=== PATIENT | female | born 1985 | race Caucasian/White ===

== ENCOUNTER 2017-06-01 14:30 | Emergency (ER) | payer OTHER ==
[2017-06-01 14:35] VITALS: PULSE 95; BMI 34.7
--- NOTE | 2017-06-01 15:24 | PDOC ---
History of Present Illness - General Chief Complaint: Pain Stated Complaint: 8WKS,ABD PAIN Time Seen by Provider: 06/01/17 14:46 History Source: Patient Exam Limitations: No Limitations - History of Present Illness Initial Comments: CHIEF COMPLAINT: 31 y/o approximately 7 week female with LMP of c/o abdominal pain for the past 2 hours. HISTORY OF PRESENT ILLNESS: The patient states the pain feels like cramping in her lower abdomen and she did have some pain in her low back as well. She denies f/c, n/v/d, CP, SOB, hematuria, dysuria, vaginal discharge, vaginal bleeding. Vital signs on arrival are notable for pulse of 95. REVIEW OF SYSTEMS: GENERAL/CONSTITUTIONAL: No fever/chills. No weakness. No weight change. HEAD, EYES, EARS, NOSE AND THROAT: No change in vision. No ear pain or discharge. No sore throat. CARDIOVASCULAR: No chest pain or shortness of breath. RESPIRATORY: No cough, wheezing, or hemoptysis. GASTROINTESTINAL: +abdominal cramping. No nausea, vomiting, diarrhea. GENITOURINARY: No dysuria, frequency, or change in urination. MUSCULOSKELETAL: No joint or muscle swelling or pain. No neck pain. +low back pain. SKIN: No rash or easy bruising. NEUROLOGIC: No headache, vertigo, loss of consciousness, or loss of sensation. PHYSICAL EXAM: GENERAL: The patient is awake, alert, and fully oriented, in no acute distress. She is well appearing and ambulatory. HEAD: Normal with no signs of trauma. ENT: Pupils equal, round and reactive to light, extraocular movements intact, sclera anicteric, conjunctiva clear. Neck supple. LUNGS: Clear to auscultation bilaterally. Normal excursion. No respiratory distress or use of accessory muscles. CV: RRR, S1/S2, no MRG. Cap refill < 2 sec. ABDOMEN: Soft, non-distended, tenderness with palpation of suprapubic region. Negative Ojeda's sign. No rebound, guarding or rigidity. BACK: No CVA TTP b/l VAGINAL: DEFERRED EXTREMITIES: Normal range of motion, no edema. NEUROLOGICAL: Normal speech, normal gait. CN II-XII grossly intact. PSYCH: Normal mood, normal affect. SKIN: Warm, dry, normal turgor, no rashes or lesions noted. Past History - Past Medical History Allergies/Adverse Reactions: Allergies Allergy/AdvReac Type Severity Reaction Status Date / Time No Known Allergies Allergy Verified 06/01/17 14:34 Home Medications: Ambulatory Orders Vit/Iron Fumarate/FA [ Tablet] 1 tab PO DAILY 11/09/15 Asthma: No Cancer: No Cardiac Disorders: No Diabetes: No HTN: No Seizures: No Thyroid Disease: No - Reproductive History (#): 2 Para: 1 Therapeutic (s) & number: Yes (4 months ago) - Psycho/Social/Smoking Cessation Hx Anxiety: No Suicidal Ideation: No Smoking Status: Yes Smoking History: Never smoked Have you smoked in the past 12 months: No Number of Cigarettes Smoked Daily: 2 Hx Alcohol Use: No Drug/Substance Use Hx: No Substance Use Type: None Hx Substance Use Treatment: No *Physical Exam - Vital Signs Last Vital Signs Temp Pulse Resp BP Pulse Ox 98.0 F 95 H 20 115/63 98 06/01/17 14:32 06/01/17 14:32 06/01/17 14:32 06/01/17 14:32 06/01/17 14:32 ED Treatment Course - LABORATORY CBC & Chemistry Diagram: 06/01/17 15:30 06/01/17 15:30 - RADIOLOGY Radiology Studies Ordered: Category Date Time Status TRANSVAGINAL US PREG [US] Stat Ultrasound 06/01/17 15:08 Ordered Medical Decision Making - Medical Decision Making A/P: 31 y/o afebrile female, approximately 7 weeks female c/o abd pain x 2 hours. Plan is as follows: 1. labs 2. UA/culture 3. transvaginal ultrasound Transvaginal Ultrasound IMPRESSION: Single, live intrauterine of 7 weeks, 2 days. Labs unremarkable. UA with trace leuks and 10 WBCs. Will treat with Keflex. Pt instructed to take Tylenol for pain if needed, take entire dose of keflex and drink at least 64oz of water daily. Pt instructed to call her COMPUTER VIDEO GAME DESIGNER on Saturday and return to the ER with any worsening or concerning symptoms. The patient verbalizes understanding of all instructions, has no further questions and is awaiting discharge. *DC/Admit/Observation/Transfer Diagnosis at time of Disposition: Abdominal pain affecting Urinary tract infection Qualifiers: Urinary tract infection type: acute cystitis Hematuria presence: without hematuria Qualified Code(s): N30.00 - Acute cystitis without hematuria - Discharge Dispostion Disposition: HOME Condition at time of disposition: Good - Referrals Referrals: Jos Briceno MD [Primary Care Provider] - - Patient Instructions Printed Discharge Instructions: DI for Urinary Tract Infection (UTI), DI for Abdominal Pain -- Early Additional Instructions: Discharge Instructions: -You have a Urinary tract infection; a prescription for antibiotics has been sent to your pharmacy; please take entire 7 days -You can take Tylenol for pain -Please drink 64oz of water daily -Call your COMPUTER VIDEO GAME DESIGNER on Saturday to schedule follow up appointment -Return to the ER with any worsening or concerning symptoms
[2017-06-01 15:38] LABS: URINE APPEARANCE CLEAR; URINE BILIRUBIN NEGATIVE (NEGATIVE); URINE BLOOD NEGATIVE (NEGATIVE); URINE COLOR YELLOW; URINE GLUCOSE (UA) NEGATIVE (NEGATIVE); URINE KETONE NEGATIVE (NEGATIVE); URINE NITRITE NEGATIVE (NEGATIVE); URINE PROTEIN NEGATIVE (NEGATIVE); URINE UROBILINOGEN NEGATIVE E.U./dl (0.2-1.0)
[2017-06-01 15:48] LABS: URINE LEUK ESTERASE TRACE (NEGATIVE)
[2017-06-01 15:54] LABS: ALBUMIN 3.5 g/dl (3.4-5.0); ALK PHOS 92 U/L (45-117); ANION GAP 8 (8-16); BILIRUBIN,TOTAL 0.2 mg/dL (0.2-1.0); CALCIUM 8.3 mg/dL (8.5-10.1); CO2 24 mmol/L (21-32); CREATININE 0.6 mg/dL (0.55-1.02); GLUCOSE,RANDOM 85 mg/dL (74-106); SGOT/AST 13 U/L (15-37); SGPT/ALT 17 U/L (12-78); URINE BACTERIA RARE /hpf (NONE SEEN); URINE RBC 3 /hpf (0-3); URINE WBC 10 /hpf (3-5)
[2017-06-01 15:56] LABS: BASOPHIL 0.8 % (0-2.0); EOSINOPHIL 1.3 % (0-4.5); MCH 29.6 pg (25.7-33.7); MCHC 33.3 g/dl (32.0-36.0); MEAN CELL VOLUME 88.8 fl (80-96); MEAN PLT VOLUME 7.9 fl (7.5-11.1); NEUTROPHILS 59.4 % (42.8-82.8); PLATELET COUNT 329 K/MM3 (134-434); RDW 13.1 % (11.6-15.6); WHITE BLOOD COUNT 8.8 K/mm3 (4.0-10.0)
[2017-06-01] MEDS ORDERED: CEPHALEXIN MONOHYDRATE 500 MG CAPSULE (UD) PO ONE (17:26)
[2017-06-01] MEDS ORDERED: CEPHALEXIN MONOHYDRATE 250 MG CAPSULE (FP) ONE (17:35)
[2017-06-01 18:07] VITALS: BP 131/78; TEMP 97.7
== END 2017-06-01 17:45 | disposition home or self-care (01) ==
LOC: JER 14:30
DX: O26.891 Other specified pregnancy related conditions, first trimester (principal); O23.11 Infections of bladder in pregnancy, first trimester; N30.90 Cystitis, unspecified without hematuria; Z3A.01 Less than 8 weeks gestation of pregnancy
CPT/HCPCS: 36415; 76801-TC; 80053; 81003; 81015; 84702; 85025; 86850; 86900; 86901; 87086; 99282-25

== ENCOUNTER 2017-12-07 22:27 | Inpatient (IN) | payer OTHER ==
[2017-12-08] MEDS ORDERED: LABETALOL HCL 5 MG/1 ML (100MG/20 ML VIAL) ONE (00:06)
[2017-12-08] MEDS ORDERED: BETAMET ACET/BETAMET NA PH 30 MG/5 ML VIAL ONE (00:08)
[2017-12-08 00:12] LABS: BASO % 0.4 % (0-2.0); EOS % 1.2 % (0-4.5); HEMATOCRIT 36.9 % (32.4-45.2); HEMOGLOBIN 12.4 GM/dL (10.7-15.3); LYMPH % 23.4 % (8-40); MCH 29.4 pg (25.7-33.7); MCHC 33.7 g/dl (32.0-36.0); MEAN CELL VOLUME 87.4 fl (80-96); MEAN PLT VOLUME 8.7 fl (7.5-11.1); MONO % 8.7 % (3.8-10.2); NEUT % 66.3 % (42.8-82.8); PLATELET COUNT 273 K/MM3 (134-434); RBC 4.22 M/mm3 (3.60-5.2); RDW 15.2 % (11.6-15.6); RETICULOCYTES 1.84 % (0.5-1.5); WHITE BLOOD COUNT 9.9 K/mm3 (4.0-10.0)
[2017-12-08 00:35] LABS: INR 0.88 (0.82-1.09); PROTHROMBIN TIME (PATIENT) 9.9 SEC (9.98-11.88)
[2017-12-08 00:38] LABS: ACTIVATED PTT 28.9 SECONDS (26.9-34.4)
--- NOTE | 2017-12-08 00:42 | HP ---
Past Medical History - Admission Chief Complaint: Vaginal bleeding History of Present Illness: 32yo LMP 04/12/17 EDC 01/17/18 by LMP presents wtih c/o vaginal bleeding. PNC at [facility] care significant for placenta previa (posterior). Pt had some bleeding in October. Denies any contractions, any leakage of fluid. +FM. Pt was sleeping and awoken by feeling wet. She states she had large amount of bleeding with large clots. Denies any pain. On L&D, blood pressure noted to be elevated; with range of 140s-170s/80s-90s. Pt denies epigastric pain, headache or scotomata. Did not have any issues with her blood pressure during the . Has not had h/o preeclampsia in her last pregnancies. Ob history significant for pph after second delivery with retained placenta. Placenta was noted to be very adherent during that delivery, and suspicious for partial accreta. Pt states that she was told that there was evidence of "scar tissue" on her u/s. Pt B+/RI/Hep bsAg negative/rpr nr/gc negative/chlam negative; hgb aa History Source: Patient Limitations to Obtaining History: No Limitations - Past Medical History ...: 4 ...Para: 2 ...Term: 0 ...: 0 ...Spon : 0 ...Induced : 1 ...LMP: 04/12/17 ...EDC by Dates: 01/17/18 Heme/Onc: No: Anemia, B12 Deficiency, Bleeding Disorder, Cancer, Current Chemotherapy, Current Radiation Therapy, Hemochromatosis, Hypercoaguable State, Myeloproliferative Synd, Sickle Cell Disease, Sickle Cell Trait, Thrombocytopenia, Other Infectious Disease: No: AIDS, C-Diff, Herpes Zoster, HIV, MRSA, STD's, Tuberculosis, VREF, Other Psych: No: Addictions, Anxiety, Bipolar, Depression, Panic, Psychosis, Schizophrenia, Other Musculoskeletal: No: Bursitis, Chronic low back pain, Hemiparesis, Hemiplegia, Osteoarthritis, Paraplegia, Other Rheumatology: No: Fibromyalgia, Gout, Lupus, Rheumatoid Arthritis, Sarcoidosis, Vasculitis, Other ENT: No: Allergic Rhinitis, Sinusitis, Other Endocrine: No: Waterloo's Disease, [place]ling[place]'s Disease, Diabetes Insipidus, Diabetes Mellitus, Hyperparathyroidism, Hyperthyroidism, Hypothyroidism, Osteopenia, SIADH, Other - Past Surgical History Past Surgical History: Yes: None Hx Myomectomy: No Hx Transabdominal Cerclage: No - Smoking History Smoking history: Never smoked Have you smoked in the past 12 months: No Aproximately how many cigarettes per day: 2 - Alcohol/Substance Use Hx Alcohol Use: No History of Substance Use: reports: None Home Medications - Allergies Allergies/Adverse Reactions: Allergies Allergy/AdvReac Type Severity Reaction Status Date / Time No Known Allergies Allergy Verified 10/15/17 21:01 - Home Medications Home Medications: Ambulatory Orders Vit/Iron Fumarate/FA [ Tablet] 1 tab PO DAILY 11/09/15 Cephalexin Monohydrate [Keflex -] 500 mg PO BID #14 capsule 06/01/17 Ferrous Sulfate [Feosol] 325 mg PO BID #60 tablet 10/15/17 Family Disease History - Family Disease History Family History: Unremarkable Review of Systems - Review of Systems Constitutional: reports: No Symptoms Eyes: reports: No Symptoms HENT: reports: No Symptoms Cardiovascular: reports: No Symptoms Respiratory: reports: No Symptoms Gastrointestinal: reports: No Symptoms Genitourinary: reports: Vaginal Bleeding Breasts: reports: No Symptoms Reported Musculoskeletal: reports: No Symptoms Integumentary: reports: No Symptoms Neurological: reports: No Symptoms Endocrine: reports: No Symptoms Hematology/Lymphatic: reports: No Symptoms Psychiatric: reports: No Symptoms Physical Exam - Maternity Constitutional: Yes: Well Nourished, No Distress, Calm Eyes: Yes: WNL, Conjunctiva Clear, EOM Intact HENT: Yes: WNL, Atraumatic, Normocephalic Neck: Yes: WNL, Supple, Trachea Midline Cardiovascular: Yes: WNL, Regular Rate and Rhythm Breast(s): Yes: WNL - Abdominal Exam/OB Fundal Height: 35 Number of Fetuses: Single Contractions: No Monitor Mode: External Heart Rate (range): 130 Category: I Accelerations: Uniform Decelerations: None - Vaginal Exam/OB Vaginal Bleediing: Yes Speculum Exam: Yes (cervix appears closed; blood in vault; no active bleeding noted) Amniotic Membrane Status: Intact - Physical Exam Musculoskeletal: Yes: WNL Extremities: Yes: WNL Integumentary: Yes: WNL - Labs Lab Results: CBC, BMP 12/07/17 23:55 Hemorrhage Risk Assessment - Risk Factors Medium Risk Factors: Yes: History of previous hemorrhage High Risk Factors: Yes: Placenta previa, low lying Risk Score: 3 Risk Level: High Risk Problem List - Problems (1) Placenta previa with hemorrhage in third trimester Code(s): O44.13 - COMPLETE PLACENTA PREVIA WITH HEMORRHAGE, THIRD TRIMESTER (2) Hypertension affecting in third trimester Code(s): O16.3 - UNSPECIFIED MATERNAL HYPERTENSION, THIRD TRIMESTER Assessment/Plan 32yo EDC 01/17/18 SIUP at 34.2 weeks gestation with placenta previa presents with vaginal bleeding. Pt also noted to have elevated blood pressure. Not currently actively bleeding on exam admit to labor and delivery betamethasone for flm r/o preeclampsia-labs and urine ordered labetalol for systolic >/ 160 or diastolic >/100 sono for well being type and cross x 2 units last , pt with pph and suspicion for placenta accreta; pt with posterior previa, and signs of "scar tissue" on sono per pt. Given bleeding, previa, elevated bp's will contact [facility] for possible transfer of care. High risk for pph and hysterectomy plan discussed with pt and at length. Dr. Silvestre
[2017-12-08 00:50] LABS: ANION GAP 10 (8-16); BLOOD UREA NITROGEN 15 mg/dL (7-18); CHLORIDE 105 mmol/L (98-107); CO2 24 mmol/L (21-32); CREATININE 0.7 mg/dL (0.55-1.02); GAMMA GLUTAMYL TRANSPEPTIDASE 17 U/L (5-85); GLUCOSE,RANDOM 75 mg/dL (74-106); POTASSIUM 4.3 mmol/L (3.5-5.1); SGOT/AST 12 U/L (15-37); SGPT/ALT 15 U/L (12-78); SODIUM 139 mmol/L (136-145); URIC ACID 4.5 mg/dL (2.6-7.2)
[2017-12-08 00:56] LABS: URINE APPEARANCE CLEAR; URINE BILIRUBIN NEGATIVE (NEGATIVE); URINE BLOOD 3+ (NEGATIVE); URINE COLOR LTYELLOW; URINE GLUCOSE (UA) 1+ (NEGATIVE); URINE KETONE NEGATIVE (NEGATIVE); URINE LEUK ESTERASE NEGATIVE (NEGATIVE); URINE NITRITE NEGATIVE (NEGATIVE); URINE UROBILINOGEN NEGATIVE mg/dL (0.2-1.0)
[2017-12-08 01:02] LABS: URINE PROTEIN 3+ (NEGATIVE)
[2017-12-08 01:04] LABS: EPI CELLS RARE /HPF (FEW); URINE BACTERIA RARE /hpf (NONE SEEN); URINE MUCUS RARE; YEAST FEW
[2017-12-08] MEDS ORDERED: MAGNESIUM 4GM/H20 - 4 GM/100 ML IVPB IVPB ONE ×2 (01:05→02:00)
[2017-12-08 01:07] LABS: URINE CREATININE 69.8 mg/dL (20-320)
[2017-12-08 01:08] LABS: RATIO URIN PROTEIN/URIN CREAT 4.68 MG/DL
[2017-12-08] MEDS ORDERED: OXYTOCIN 10 UNITS/ML VIAL ONE (01:56)
[2017-12-08] MEDS ORDERED: BETAMET ACET/BETAMET NA PH 30 MG/5 ML VIAL IM ONE (01:58)
[2017-12-08] MEDS ORDERED: DEXTROSE 5%-LACTATED RINGERS 1,000 ML IV SCH (02:00)
[2017-12-08] MEDS ORDERED: MAGNESIUM SULFATE 20GM/500ML - 20 GM/500 ML INFUS.BAG IVPB SCH (02:00)
--- NOTE | 2017-12-08 02:17 | PN ---
Progress Note (short form) - Note Progress Note: Pt labs reviewed: h/h 12.4/36.[address] [facility] contacted for possible transfer. Concern regarding placenta previa and previous h/o pph with questionable accreta. transfer accepted. Dr. Silvestre Problem List - Problems (1) Placenta previa with hemorrhage in third trimester Code(s): O44.13 - COMPLETE PLACENTA PREVIA WITH HEMORRHAGE, THIRD TRIMESTER (2) Hypertension affecting in third trimester Code(s): O16.3 - UNSPECIFIED MATERNAL HYPERTENSION, THIRD TRIMESTER
[2017-12-08 04:06] VITALS: PULSE 87
[2017-12-08 04:07] VITALS: BP 145/84
[2017-12-08 04:40] VITALS: TEMP 98.5; BMI 41.5
== END 2017-12-08 03:00 | disposition short-term general hospital (02) | DRG 566 ==
LOC: JDEL 22:27 → JLDR 12-08 00:22
PROVIDERS: ADMIT Obstetrics & Gynecology; ATTEND Obstetrics & Gynecology
DX: O44.03 Complete placenta previa NOS or without hemorrhage, third trimester (principal); O13.3 Gestational [pregnancy-induced] hypertension without significant proteinuria, third trimester; Z3A.34 34 weeks gestation of pregnancy
CPT/HCPCS: 36415; 76815; 76830-TC; 80048; 81003; 81015; 82570; 82977; 83010; 84156; 84450; 84460; 84550; 85025; 85044; 85610; 85730; 86593; 86850; 86900; 86901; 96372

== ENCOUNTER 2018-05-13 07:47 | Inpatient (IN) | payer OTHER ==
[2018-05-12 16:34] VITALS: BMI 40.6
[~2018-05-13 07:47] MED LIST: BUPIVACAINE HCL/PF (5 MG/ML) 30 ML VIAL IJ ONE
[2018-05-13] MEDS ORDERED: BUPIVACAINE HCL/PF 0.5% (5MG/ML) 10 ML VIAL ONE (07:58)
[2018-05-13] MEDS ORDERED: MIDAZOLAM HCL 2 MG/2 ML SINGLE DOSE VIAL ONE ×2 (09:43)
[2018-05-13] MEDS ORDERED: DEXAMETHASONE SOD PHOSPHATE/PF 10 MG/ML SDV ONE (09:45)
[2018-05-13] MEDS ORDERED: ROPIVACAINE HCL 0.5% 30ML VIAL ONE (09:45)
[2018-05-13] MEDS ORDERED: ROCURONIUM BROMIDE 50 MG/5 ML VIAL ONE (10:14)
[2018-05-13] MEDS ORDERED: fentaNYL CITRATE 250 MCG/5 ML VIAL ONE (10:14)
[2018-05-13] MEDS ORDERED: DEXAMETHASONE SOD PHOSPHATE 4 MG/1 ML VIAL ONE (10:15)
[2018-05-13] MEDS ORDERED: ceFAZolin SODIUM 1 GM VIAL IVPB ONE (10:55)
[2018-05-13] MEDS ORDERED: BUPIVACAINE HCL/PF (5 MG/ML) 30 ML VIAL IJ ONE (12:35)
[2018-05-13] MEDS ORDERED: NEOSTIGMINE METHYLSULFATE 0.5 MG/ML - 10 ML MDV ONE (12:36)
[2018-05-13] MEDS ORDERED: GLYCOPYRROLATE 0.2 MG/1 ML VIAL ONE (12:36)
[2018-05-13] MEDS ORDERED: ONDANSETRON 4 MG/2 ML VIAL IVPUSH PRN (12:54)
[2018-05-13] MEDS ORDERED: PROMETHAZINE HCL 25 MG/1 ML VIAL IVPB PRN (12:54)
[2018-05-13] MEDS ORDERED: ACETAMINOPHEN INJECTION 100 ML IVPB ONE (12:57)
[2018-05-13] MEDS ORDERED: FAMOTIDINE 20 MG/50 ML IVPB 20 MG/50 ML MG IVPB ONE (12:58)
[2018-05-13] MEDS ORDERED: METOCLOPRAMIDE HCL INJECTION 10 MG/2 ML VIAL ONE (12:58)
--- NOTE | 2018-05-13 12:58 | OP ---
Operative Note - Note: Operative Date: 05/13/18 Pre-Operative Diagnosis: Morbid obesity due to excess calories Operation: Laproscopic gastric sleeve, liver biopsy, and EGD Anesthesia: General Estimated Blood Loss (mls): 50 Fluid Volume Replaced (mls): 800 Operative Report Dictated: Yes
--- NOTE | 2018-05-13 12:59 | SURG ---
Surgery Agricultural Aircraft Pilot Note Agricultural Aircraft Pilot: Samuel Bryant PA-C Date of Service: 05/13/18 Diagnosis: Morbid obesity due to excess calories Procedure: Laproscopic gastric sleeve, liver biopsy and EGD I was present for the entirety of the operative procedure. For further detail, please refer to operative report.
[2018-05-13] MEDS: METOCLOPRAMIDE HCL INJECTION 10 MG/2 ML VIAL IVPUSH SCH ×2 (13:00→18:21)
[2018-05-13] MEDS: ACETAMINOPHEN 1000 MG/100 ML VIAL (NON FORMULARY) IVPB SCH ×2 (13:00→18:21)
[2018-05-13] MEDS ORDERED: LACTATED RINGERS SOLUTION 1,000 ML IV SCH (13:00)
[2018-05-13] MEDS: ONDANSETRON 4 MG/2 ML VIAL IVPUSH SCH ×3 (13:00→21:15)
[2018-05-13] MEDS ORDERED: SODIUM CHLORIDE 1,000 ML IV SCH (13:00)
[2018-05-13] MEDS ORDERED: FAMOTIDINE 20 MG PREMIXED IVPB IVPB ONE (13:13)
[2018-05-13 13:28] LABS: HEMATOCRIT 38.5 % (32.4-45.2); HEMOGLOBIN 12.4 GM/dL (10.7-15.3); MCH 26.1 pg (25.7-33.7); MCHC 32.3 g/dl (32.0-36.0); MEAN CELL VOLUME 80.8 fl (80-96); PLATELET COUNT 466 K/MM3 (134-434); RBC 4.77 M/mm3 (3.60-5.2); RDW 17.6 % (11.6-15.6); WHITE BLOOD COUNT 15.2 K/mm3 (4.0-10.0)
[2018-05-13 13:53] LABS: ALK PHOS 116 U/L (45-117); ANION GAP 6 (8-16); BILIRUBIN,TOTAL 0.2 mg/dL (0.2-1.0); BLOOD UREA NITROGEN 12 mg/dL (7-18); CALCIUM 8.6 mg/dL (8.5-10.1); CHLORIDE 106 mmol/L (98-107); CO2 27 mmol/L (21-32); CREATININE 1.1 mg/dL (0.55-1.02); GLUCOSE,RANDOM 151 mg/dL (74-106); POTASSIUM 4.5 mmol/L (3.5-5.1); SGOT/AST 37 U/L (15-37); SGPT/ALT 66 U/L (12-78); SODIUM 139 mmol/L (136-145)
--- NOTE | 2018-05-13 15:48 | HP ---
Admitting History and Physical - Admission Chief Complaint: Morbid obesity History Source: Patient Limitations to Obtaining History: No Limitations - Past Medical History ...LMP: 05/08/18 ...LMP Comment: REGULAR ...: Yes - Past Surgical History Past Surgical History: Yes: None - Smoking History Smoking history: Never smoked Have you smoked in the past 12 months: No Aproximately how many cigarettes per day: 0 - Alcohol/Substance Use Hx Alcohol Use: No History of Substance Use: reports: None Home Medications - Allergies Allergies/Adverse Reactions: Allergies Allergy/AdvReac Type Severity Reaction Status Date / Time No Known Allergies Allergy Verified 05/13/18 09:03 - Home Medications Home Medications: Ambulatory Orders Vit/Iron Fumarate/FA [ Tablet] 1 tab PO DAILY 11/09/15 Famotidine [Pepcid] 20 mg PO BID #60 tablet 05/13/18 Oxycodone HCl/Acetaminophen [Percocet 5-325 mg Tablet] 1 - 2 tab PO Q6H #28 tab MDD 4 05/13/18 Family Disease History - Family Disease History Family History: Denies Review of Systems - Review of Systems Constitutional: denies: Chills, Fever HENT: reports: No Symptoms Neck: reports: No Symptoms Cardiovascular: reports: No Symptoms Respiratory: reports: No Symptoms Gastrointestinal: reports: No Symptoms Neurological: reports: No Symptoms Pain Intensity: 0 Physical Examination Vital Signs: Vital Signs Temperature 97.9 F 05/13/18 15:00 Pulse Rate 77 05/13/18 15:00 Respiratory Rate 16 05/13/18 15:00 Blood Pressure 164/87 05/13/18 15:00 O2 Sat by Pulse Oximetry (%) 99 05/13/18 14:50 Constitutional: Yes: Calm Neck: Yes: WNL Cardiovascular: Yes: Regular Rate and Rhythm Respiratory: Yes: Regular Gastrointestinal: Yes: Soft, Abdomen, Obese Neurological: Yes: Alert, Oriented Labs: CBC, BMP 05/13/18 12:55 05/13/18 12:55 Problem List - Problems (1) Morbid obesity due to excess calories Code(s): E66.01 - MORBID (SEVERE) OBESITY DUE TO EXCESS CALORIES Assessment/Plan Laparoscopic possible open vertical sleeve gastrectomy, possible liver biosy, EGD
--- NOTE | 2018-05-13 16:15 | SPEC ---
DATE OF OPERATION: 05/13/2018 SURGEON: Victor Hugo Brumfield MD CHEESEMAKER HELPER: Samuel Bryant PREOPERATIVE DIAGNOSES: 1. Morbid obesity. 2. Body mass index of 40.6. POSTOPERATIVE DIAGNOSES: 1. Morbid obesity. 2. Body mass index of 40.6. 3. Hepatomegaly. PROCEDURE: 1. Laparoscopic vertical sleeve gastrectomy. 2. Laparoscopic wedge liver biopsy. 3. Upper endoscopy/esophagogastroduodenoscopy. SPECIMEN: 1. Greater curvature of the stomach. 2. Wedge liver biopsy. ESTIMATED BLOOD LOSS: 30 mL DRAINS: None. BOUGIE: Size 36-Danish. ANESTHESIA: GET. REASON FOR PROCEDURE: This is a 32-year-old female who presented for weight loss options. After describing different options, she decided to proceed with a laparoscopic, possible open vertical sleeve gastrectomy, possible liver biopsy, and upper endoscopy. RISKS AND BENEFITS: After describing the different options for weight loss management, the patient decided to proceed with a laparoscopic, possible open vertical sleeve gastrectomy. The patient was seen by the respective subspecialties and cleared for surgery. The risks and benefits of the procedure were explained. These included bleeding, infection, hernia, TN, DVT, PE, injury to surrounding structures including the liver, colon, bowel, spleen, esophagus, vessel injury, nerve injury, weight regain, gastric leak, staple line leak, sleeve leak, obstruction, vitamin deficiency, hair loss and as some of the possible complications. The patient understood and signed informed consent. DESCRIPTION OF PROCEDURE: The patient was placed supine on the operating room table. The patient underwent general endotracheal intubation. The arms were brought out at 90 degrees and secured. A footboard was placed and the legs were secured laterally with padding. The abdomen was prepped and draped in the usual sterile fashion. A timeout was performed. An incision was made in the left upper quadrant and a Veress needle inserted. Pneumoperitoneum was established. Subsequently, the Veress needle was removed and a 5-mm trocar was placed under direct visualization with the laparoscope. The laparoscopic camera was then inserted and inspection of the abdominal cavity was performed. An incision was then made in the supraumbilical area and a 15-mm trocar was placed under direct visualization. A 5-mm trocar was then placed in the right upper quadrant and a 5-mm trocar was placed below the left subcostal margin. A stab wound was made in the subxiphoid area and a Mariluz clamp inserted and removed to dilate the tract. A Ghazala liver retractor was inserted. The post was secured at the bedside by the nursing staff. The patient was placed in steep reverse Trendelenburg position and the Ghazala liver retractor was used to secure the liver towards the anterior abdominal wall. The pylorus was identified and 6 cm proximal to it, the lesser sac was entered using the LigaSure device. All lateral attachments to the greater curvature of the stomach, including the short gastric vessels, were ligated using the LigaSure device toward the gastrosplenic and gastrophrenic ligaments. Once this was done in its entirety, it was confirmed that all tubes within the nasal or oropharyngeal cavity, including a temperature probe, was removed by Anesthesia. The bougie was then inserted by Anesthesia. Transection of the stomach was then begun staying adjacent to the bougie but away from the angularis. Transection of the stomach was performed near the portion of the stomach where the lesser sac was entered. Two laparoscopic Endo-ALEXIA black bayron were used at this location. Laparoscopic Endo ALEXIA purple staple loads were then used for the remainder of the transection until the greater curvature of the stomach was fully transected. This was done staying close to the bougie. Care was taken to stay away from the angle of His cephalad. The staple line was then inspected. Hemostasis was identified. A leak test was then performed. It was clamped distally to the staple line. Irrigation solution was placed in the left upper quadrant and air was insufflated by Anesthesia into the sleeve. No leaks were identified. No obstruction was identified. This was done through the entirety of the staple line. In addition, an upper endoscopy was performed. The endoscope was placed into the patients mouth and the entirety of the esophagus, GE junction, gastric pouch and staple line were inspected. No obstruction or leak was noted. The stomach was suctioned and the endoscope removed fully intact. At this point, the irrigation solution was suctioned and again, hemostasis was noted. A wedge liver biopsy was then performed. The left lobe of the liver was identified and a portion of the edge was grasped. Using electrocautery, a wedge of the liver was excised. This was removed and sent off the field as specimen. Hemostasis at the site of the wedge liver biopsy was attained using electrocautery. The 15-mm supraumbilical trocar was then removed and the greater curvature specimen removed from the site using a sponge stick [place]. The specimen was inspected and a Veress needle inserted. The specimen insufflated adequately and no leak was identified. The staple line was noted to be intact. A Bry-Adela device was then used to close the fascia with a 0 Vicryl suture at the site. Again, hemostasis was noted. The Ghazala liver retractor was then removed under direct visualization. Pneumoperitoneum was desufflated and the fascial sutures were secured. Hemostasis was noted at all incision sites and Marcaine was injected at all incision sites. All incision sites were closed using 4-0 Biosyn. Sterile dressings were applied. The patient tolerated the procedure well and was transferred to the recovery room in stable condition. The patient was transferred to telemetry for further monitoring. Kaylee LOPEZ/[id number] [id number]
[2018-05-13] MEDS ORDERED: HYDROmorphone HCL CARPU-JECT 1 MG/1 ML DISP.SYRIN IVPB PRN (16:25)
[2018-05-13] MEDS: FAMOTIDINE 20 MG/50 ML IVPB 20 MG/50 ML MG IVPB SCH (21:36)
[2018-05-13] MEDS: ENOXAPARIN NA (PORCINE) 40 MG/0.4 ML DISP.SYRIN SQ SCH (21:38)
[2018-05-14] MEDS: ONDANSETRON 4 MG/2 ML VIAL IVPUSH SCH ×4 (00:16→15:06)
[2018-05-14] MEDS: ACETAMINOPHEN 1000 MG/100 ML VIAL (NON FORMULARY) IVPB SCH ×2 (00:16→06:25)
[2018-05-14] MEDS: METOCLOPRAMIDE HCL INJECTION 10 MG/2 ML VIAL IVPUSH SCH ×3 (00:16→15:06)
[2018-05-14 06:36] LABS: HEMATOCRIT 34.4 % (32.4-45.2); HEMOGLOBIN 11.4 GM/dL (10.7-15.3); MCH 26.5 pg (25.7-33.7); MCHC 33.3 g/dl (32.0-36.0); MEAN CELL VOLUME 79.5 fl (80-96); MEAN PLT VOLUME 7.7 fl (7.5-11.1); PLATELET COUNT 385 K/MM3 (134-434); RBC 4.32 M/mm3 (3.60-5.2); RDW 17.2 % (11.6-15.6); WHITE BLOOD COUNT 12.9 K/mm3 (4.0-10.0)
[2018-05-14 07:09] LABS: CHLORIDE 105 mmol/L (98-107); POTASSIUM 4.1 mmol/L (3.5-5.1); SODIUM 141 mmol/L (136-145)
[2018-05-14 07:20] LABS: ALBUMIN 3.5 g/dl (3.4-5.0); ALK PHOS 98 U/L (45-117); ANION GAP 11 (8-16); BILIRUBIN,TOTAL 0.4 mg/dL (0.2-1.0); BLOOD UREA NITROGEN 6 mg/dL (7-18); CALCIUM 8.2 mg/dL (8.5-10.1); CO2 25 mmol/L (21-32); CREATININE 0.7 mg/dL (0.55-1.02); GLUCOSE,RANDOM 101 mg/dL (74-106); SGOT/AST 31 U/L (15-37); SGPT/ALT 67 U/L (12-78); TOT PROT 7.4 g/dl (6.4-8.2)
--- NOTE | 2018-05-14 08:42 | PN ---
Progress Note (short form) - Note Progress Note: Post op day#1.S/p Laproscopic gastric sleeve placement under GA uneventful.Patient stable.No any anesthesia related problem.Patient DC from the anesthesia care.
[2018-05-14] MEDS ORDERED: oxyCODONE HCL 5 MG TABLET PO PRN (10:03)
[2018-05-14] MEDS ORDERED: SODIUM CHLORIDE 1,000 ML IV SCH (10:15)
--- NOTE | 2018-05-14 10:22 | PN ---
Progress Note (short form) - Note Progress Note: 32yo F s/p Lap gastric sleeve POD 1, Pt seen sitting at bedside. Pt states that she feels well, complains of mild abd pain. Denies n/v, fever, chills. Pt ambulating well and urinating. Pt requesting to go home as she feels great. Last Vital Signs Temp Pulse Resp BP Pulse Ox 98.7 F 76 18 143/72 99 05/14/18 06:00 05/14/18 06:00 05/14/18 06:00 05/14/18 06:00 05/13/18 21:00 CBC, BMP 05/14/18 05:30 05/14/18 05:30 PE: Gen: A&O x 3 Resp: breathing comfortably Abd: soft, nontender, nondistended, incisions clean with no erythema or discharge Ext: soft, no edema <Samuel Bryant - Last Filed: 05/14/18 10:08> - Note Progress Note: POD 1 Pain controlled AVSS Abd soft UGI: no leak/obstruction Clears Discharge home <Victor Hugo Brumfield - Last Filed: 05/14/18 11:50> Problem List - Problems (1) Morbid obesity due to excess calories Assessment/Plan: Plan -Pt doing well, upper GI series no leak, will advance to bariatric diet. -OOB/ambulate -incentive spirometry -Will consider discharge late afternoon/evening, if tolerates diet. Case discussed with Dr. Brumfield who agrees Code(s): E66.01 - MORBID (SEVERE) OBESITY DUE TO EXCESS CALORIES <Samuel Bryant - Last Filed: 05/14/18 10:08> - Problems (1) Morbid obesity due to excess calories Code(s): E66.01 - MORBID (SEVERE) OBESITY DUE TO EXCESS CALORIES <Victor Hugo Brumfield - Last Filed: 05/14/18 11:50>
[2018-05-14] MEDS: ENOXAPARIN NA (PORCINE) 40 MG/0.4 ML DISP.SYRIN SQ SCH (10:35)
[2018-05-14] MEDS: FAMOTIDINE 20 MG/50 ML IVPB 20 MG/50 ML MG IVPB SCH (10:35)
[2018-05-14 14:36] VITALS: BP 134/86; PULSE 63; TEMP 98.6
--- NOTE | 2018-05-15 09:08 | PATH ---
Surgical Pathology Report Patient Name: DEEPIKA REMY [facility]. Rec. #: [id number] /Age/Gender: 1985 (Age: 32) / F Account: [id number] Location: 4 W TELEMETRY U Taken: 05/13/2018 Received: 05/13/2018 Reported: 05/15/2018 Physicians: Victor Hugo Brumfield M.D. Specimen(s) Received A: GREATER CURVATURE STOMACH B: LIVER BIOPSY Clinical History Morbid obesity Final Diagnosis A. STOMACH, GREATER CURVATURE, LAPAROSCOPIC VERTICAL SLEEVE GASTRECTOMY: PORTION OF STOMACH WITH MODERATE CHRONIC GASTRITIS. IMMUNOHISTOCHEMICAL STAIN FOR H. PYLORI IS POSITIVE (FEW). B. LIVER, BIOPSY: STEATOHEPATITIS, MILD; SEVERE STEATOSIS (~70%). MILD PERIVENULAR, MILD PERISINUSOIDAL, FOCAL PORTAL AND FOCAL PERIPORTAL FIBROSIS (STAGE I OF 4). SEE COMMENT. Comment: Biopsy is subcapsular. The liver parenchyma demonstrates severe mixed macro and microvesicular steatosis (~70%). Mild inflammatory infiltrate comprised of neutrophils and few lymphocytes are seen in portal tracts and within lobules. No significant interface activity is present. No plasmacytosis is present. Focal mild bile cholestasis is noted. No granulomas are present. Focal hepatocyte ballooning is noted. No definitive Alyssa hyaline is identified. The trichrome stain highlights mild perivenular, mild perisinusoidal, focal portal and focal mild periportal fibrosis. No increase in iron identified by Iron special stain. Overall, findings show mild steatohepatitis and severe steatosis; stage 1 of 4 (Brunt). Etiologies include alcohol and alcoholic liver injury including metabolic conditions, drug or toxin injury. Suggest clinical and serologic correlation. Electronically Signed Katherine Paniagua M.D. Gross Description A. Received in formalin, labeled "greater curvature of stomach," is a 104 gram, 19 x 7.5 x 0.5 cm. portion of stomach with a stapled margin of resection. The serosa is silva-guan with minimal attached fat. The mucosa is silva-pink with normal folds. No mucosal masses are identified. Fitness Center Attendant sections are submitted in one cassette. B. Received in formalin labeled "liver biopsy," is a 1.5 x 1.5 x 0.8 cm silva, irregular portion of soft tissue, consistent with a portion of liver. The specimen is serially sectioned and entirely submitted in one cassette. MIRNA/05/13/2018 lolis05/13/2018
== END 2018-05-14 17:51 | disposition home or self-care (01) | DRG 403 ==
LOC: JSAMEDAYSX 07:47 → EDSTATUS 10:00 → J4W 15:34
PROVIDERS: ADMIT Surgery; ATTEND Surgery
PROC: 0DB64Z3 Excision of Stomach, Percutaneous Endoscopic Approach, Vertical (ICD-10-PCS; principal; 2018-05-13 10:00)
PROC: 0FB24ZX Excision of Left Lobe Liver, Percutaneous Endoscopic Approach, Diagnostic (ICD-10-PCS; 2018-05-13 10:00)
PROC: 0DJ08ZZ Inspection of Upper Intestinal Tract, Via Natural or Artificial Opening Endoscopic (ICD-10-PCS; 2018-05-13 10:00)
DX: E66.01 Morbid (severe) obesity due to excess calories (principal); Z68.41 Body mass index [BMI] 40.0-44.9, adult; R16.0 Hepatomegaly, not elsewhere classified
CPT/HCPCS: 36415; 74241-TC-FY; 80053; 84703; 85027; 86850; 86900; 86901; 88307-TC; 94010; 94760; J0131; J7030

== ENCOUNTER 2018-06-01 01:09 | Emergency (ER) | payer OTHER ==
[2018-06-01 01:33] VITALS: BP 130/85; PULSE 115; TEMP 98.8; BMI 36.6
--- NOTE | 2018-06-01 01:42 | PDOC ---
History of Present Illness - General Chief Complaint: Abscess Boil Stated Complaint: ABSCESS Time Seen by Provider: 06/01/18 01:42 - History of Present Illness Initial Comments: 32 year old female with no significant PMH presenting with right axillary pain, swelling, and erythema for the past few weeks. She stated that she has had small lesions in her right arm pit since her 3 years a go that usually self resolve with auto-drainage after a a few days or so of warm soaks etc. However, this new lesion has not resolved after 4 days of soaks and has actually worsened. Denies fevers, chills, nausea, vomiting, diarrhea, constipation. Of note, she is s/p 2 weeks from gastric sleeve by Dr. Brumfield. 06/01/18 02:58 Past History - Past Medical History Allergies/Adverse Reactions: Allergies Allergy/AdvReac Type Severity Reaction Status Date / Time No Known Allergies Allergy Verified 06/01/18 01:33 Home Medications: Ambulatory Orders Vit/Iron Fumarate/FA [ Tablet] 1 tab PO DAILY 11/09/15 Famotidine [Pepcid] 20 mg PO BID #60 tablet 05/13/18 Oxycodone HCl/Acetaminophen [Percocet 5-325 mg Tablet] 1 - 2 tab PO Q6H #28 tab MDD 4 05/13/18 Clindamycin [Cleocin -] 300 mg PO QID #40 capsule 06/01/18 Anemia: No Asthma: No Cancer: No Cardiac Disorders: No CVA: No COPD: No CHF: No Dementia: No Diabetes: No GI Disorders: No Disorders: No HTN: No Hypercholesterolemia: No Liver Disease: No Seizures: No Thyroid Disease: No - Surgical History Abdominal Surgery: No Appendectomy: No Cardiac Surgery: No Cholecystectomy: No Lung Surgery: No Neurologic Surgery: No Orthopedic Surgery: No - Reproductive History (#): 2 Para: 1 Therapeutic (s) & number: Yes (4 months ago) - Suicide/Smoking/Psychosocial Hx Smoking Status: Yes Smoking History: Never smoked Have you smoked in the past 12 months: No Number of Cigarettes Smoked Daily: 0 Information on smoking cessation initiated: No Hx Alcohol Use: No Drug/Substance Use Hx: No Substance Use Type: None Hx Substance Use Treatment: No Review of Systems - Review of Systems Constitutional: No: Chills, Diaphoresis, Fever, Loss of Appetite HEENTM: No: Recent change in vision, Double Vision, Cataracts Respiratory: No: Cough, Orthopnea, Shortness of Breath, Wheezing Cardiac (ROS): No: Chest Pain, Edema, Irregular Heart Rate ABD/GI: No: Diarrhea, Nausea, Vomiting : No: Burning, Dysuria, Discharge Musculoskeletal: No: Back Pain Integumentary: Yes: Erythema, Lesions, Lumps. No: Flushing Neurological: No: Headache, Numbness, Paresthesia Psychiatric: No: Anxiety, Depression Hematologic/Lymphatic: No: Anemia, Blood Clots *Physical Exam - Vital Signs Last Vital Signs Temp Pulse Resp BP Pulse Ox 98.8 F 115 H 22 130/85 100 06/01/18 01:06/01/18 01:06/01/18 01:06/01/18 01:06/01/18 01:29 - Physical Exam General Appearance: Yes: Nourished, Appropriately Dressed. No: Apparent Distress HEENT: positive: EOMI, STELLA, Normal ENT Inspection, Normal Voice Neck: positive: Trachea midline, Normal Thyroid, Supple. negative: Tender, Rigid Respiratory/Chest: positive: Lungs Clear, Normal Breath Sounds. negative: Chest Tender, Respiratory Distress Cardiovascular: positive: Regular Rhythm, Tachycardia. negative: Regular Rate Gastrointestinal/Abdominal: positive: Normal Bowel Sounds, Flat, Soft. negative : Tender Lymphatic: positive: Adenopathy, Tenderness Musculoskeletal: positive: Normal Inspection. negative: Decreased Range of Motion Extremity: positive: Normal Capillary Refill, Normal Inspection, Normal Range of Motion. negative: Tender Integumentary: positive: Normal Color, Dry, Warm, Other (multiple areas of erythema and swelling in the right axilla along with site sof previously healed abscesses with one large abscess measuring 6cms x 3cms proximal to her right axilla) Neurologic: positive: Fully Oriented, Alert, Normal Mood/Affect, Normal Response , Motor Strength 5/5 Procedures - Incision and Drainage I&D Site: Right: Axilla Betadine cleansed: Yes Blade Size: 21 Guage needle Attempts: 1 Progress: We used a needle to drain the abscess because of concern that further surgical debridement may need to be pursued by her surgeon Dr. Brumfield. We cleansed the area and drained 11 CCs of pus with good relief of tension and pain. 06/01/18 04:22 ED Treatment Course - LABORATORY CBC & Chemistry Diagram: 06/01/18 02:33 06/01/18 02:33 Medical Decision Making - Medical Decision Making 32 year odl female with new history of right axillary abscesses with current presentation concerning for cellulitis/ hydradenitis supporitiva. We Drained 11 Ccs of fluid and sent it for culture. Our original plan was to admit the patient and have Dr. Brumfield evaluate her but she did not want to wait for a surgical eval. We treated her with Clindamycin in the ED and sent her home with a prescription. Her pain improved with 15 IV toradol. Patient discharged with stable vitals, pain controlled, followup with Aral[facility], and return precautions. 06/01/18 04:23 *DC/Admit/Observation/Transfer Diagnosis at time of Disposition: Abscess - Discharge Dispostion Disposition: HOME Condition at time of disposition: Improved Decision to Admit order: No - Prescriptions Prescriptions: Clindamycin [Cleocin -] 300 mg PO QID #40 capsule - Referrals Referrals: Richard Briceno [Primary Care Provider] - Victor Hugo Brumfield MD [Staff Physician] - - Patient Instructions Printed Discharge Instructions: DI for Skin Abscess Additional Instructions: We are worried that your abscess in your right arm pit is part of a more complex disease process known as hydradentitis supporitiva. Please take your antibiotics as prescribed and please see your surgeon, Dr. Brumfield, for evaluation of your armpit abscess. Please return to the ED if you ahve new or worsening symptoms. - Post Discharge Activity Forms/Work/School Notes: Back to Work
--- NOTE | 2018-06-01 02:03 | PDOC ---
Attending Attestation - Resident Resident Name: Miley Navarrete - ED Attending Attestation I have performed the following: I have examined & evaluated the patient, The case was reviewed & discussed with the resident, I agree w/resident's findings & plan - HPI HPI: 06/01/18 03:26 Pt comes with cellulitis and abscess under her armpit. She has some surrounding cellulitis. She is adamant to go to work tomorrow at the [facility] [facility]. - Physicial Exam PE: 06/01/18 03:27 Agree with resident exam - Medical Decision Making 06/01/18 03:27 11ml pus removed from the abscess, IV clinda given. Pt will go home with PO clinda and she will follow with her surgeon Dr. Brumfield. Return for worsening infection.
[2018-06-01] MEDS ORDERED: KETOROLAC TROMETHAMINE 15 MG/ML VIAL IVPUSH ONE (02:43)
[2018-06-01] MEDS ORDERED: KETOROLAC TROMETHAMINE 15 MG/ML VIAL ONE (02:45)
[2018-06-01 02:52] LABS: BASO % 0.4 % (0-2.0); EOS % 1.1 % (0-4.5); HEMATOCRIT 32.5 % (32.4-45.2); HEMOGLOBIN 10.6 GM/dL (10.7-15.3); LYMPH % 17.6 % (8-40); MCH 26.5 pg (25.7-33.7); MCHC 32.6 g/dl (32.0-36.0); MEAN CELL VOLUME 81.3 fl (80-96); MEAN PLT VOLUME 7.9 fl (7.5-11.1); MONO % 7.8 % (3.8-10.2); NEUT % 73.1 % (42.8-82.8); PLATELET COUNT 372 K/MM3 (134-434); RDW 17.1 % (11.6-15.6); WHITE BLOOD COUNT 13.8 K/mm3 (4.0-10.0)
[2018-06-01] MEDS ORDERED: CLINDAMYCIN 600MG PREMIX IVPB 600 MG/50 ML BAG IVPB ONE ×2 (02:56→03:09)
[2018-06-01 03:07] LABS: INR 1.37 (0.82-1.09); PROTHROMBIN TIME (PATIENT) 15.5 SEC (9.7-13.0)
[2018-06-01 03:15] LABS: ALBUMIN 3.5 g/dl (3.4-5.0); ALK PHOS 89 U/L (45-117); ANION GAP 11 (8-16); BILIRUBIN,TOTAL 0.4 mg/dL (0.2-1.0); BLOOD UREA NITROGEN 9 mg/dL (7-18); CALCIUM 8.5 mg/dL (8.5-10.1); CHLORIDE 102 mmol/L (98-107); CO2 25 mmol/L (21-32); CREATININE 0.7 mg/dL (0.55-1.02); GLUCOSE,RANDOM 84 mg/dL (74-106); POTASSIUM 3.6 mmol/L (3.5-5.1); SGOT/AST 11 U/L (15-37); SODIUM 138 mmol/L (136-145); TOT PROT 7.2 g/dl (6.4-8.2)
[2018-06-01 03:18] LABS: SGPT/ALT 19 U/L (12-78)
--- NOTE | 2018-06-01 09:24 | EKG ---
Test Reason : Blood Pressure : / mmHG Vent. Rate : 109 BPM Atrial Rate : 109 BPM P-R Int : 150 ms QRS Dur : 092 ms QT Int : 336 ms P-R-T Axes : 055 037 042 degrees QTc Int : 452 ms SINUS TACHYCARDIA WHEN COMPARED WITH ECG OF 06-FEB-2006 00:48, VENT. RATE HAS INCREASED BY 42 BPM Confirmed by ALEXIS RANKIN MD ([id number]) on 06/01/2018 9:24:28 AM Referred By: Confirmed By:ALEXIS RANKIN MD
== END 2018-06-01 04:29 | disposition home or self-care (01) ==
LOC: JER 01:09
PROC: 0X943ZZ Drainage of Right Axilla, Percutaneous Approach (ICD-10-PCS; principal; 2018-06-01)
PROC: 3E03329 Introduction of Other Anti-infective into Peripheral Vein, Percutaneous Approach (ICD-10-PCS; 2018-06-01)
PROC: 3E0333Z Introduction of Anti-inflammatory into Peripheral Vein, Percutaneous Approach (ICD-10-PCS; 2018-06-01)
DX: L02.411 Cutaneous abscess of right axilla (principal)
CPT/HCPCS: 10060; 36415; 80053; 85025; 85610; 87070; 87076; 87077; 87205; 93005; 93010; 96365; 96375; 99281-25

== ENCOUNTER 2018-12-10 19:56 | Emergency (ER) | payer OTHER ==
--- NOTE | 2018-12-10 20:02 | PDOC ---
Rapid Medical Evaluation Time Seen by Provider: 12/10/18 19:59 Medical Evaluation: Allergies Allergy/AdvReac Type Severity Reaction Status Date / Time No Known Allergies Allergy Verified 06/01/18 01:33 12/10/18 19:59 I have performed a brief in-person evaluation of this patient. The patient presents with a chief complaint of:lower back pain x1 week. Pertinent physical exam findings: Denies Saddle anesthesia/incontinence. No palpable muscle spasm. I have ordered the following: upt The patient will proceed to the ED for further evaluation. Discharge Disposition - Diagnosis Back pain - Referrals - Patient Instructions - Post Discharge Activity
[2018-12-10 20:04] VITALS: BP 159/113; PULSE 79; TEMP 98; BMI 30.4
[2018-12-10 20:57] LABS: HCG,QUALITATIVE URINE Negative; URINE APPEARANCE CLEAR; URINE BILIRUBIN NEGATIVE (<2.0 mg/dL); URINE COLOR YELLOW; URINE GLUCOSE (UA) NEGATIVE (NEGATIVE); URINE KETONE 1+ (NEGATIVE); URINE LEUK ESTERASE TRACE (NEGATIVE); URINE NITRITE NEGATIVE (NEGATIVE); URINE PROTEIN NEGATIVE (NEGATIVE); URINE UROBILINOGEN NEGATIVE mg/dL (0.2-1.0)
[2018-12-10 21:05] LABS: EPI CELLS RARE /HPF (FEW); URINE MUCUS RARE
[2018-12-10] MEDS ORDERED: KETOROLAC TROMETHAMINE 60 MG/2 ML VIAL IM ONE (21:14)
[2018-12-10] MEDS ORDERED: KETOROLAC TROMETHAMINE 60 MG/2 ML VIAL ONE (21:17)
--- NOTE | 2018-12-10 21:17 | PDOC ---
History of Present Illness - General Chief Complaint: Pain Stated Complaint: PAIN ON RT SIDE OF BODY Time Seen by Provider: 12/10/18 19:59 - History of Present Illness Initial Comments: 12/10/18 21:15 33-year-old female without comorbidities presents for evaluation of 7 days of lower back pain with right posterior lateral leg radicular symptoms. No loss of bowel bladder function or saddle paresthesias. Past History - Past Medical History Allergies/Adverse Reactions: Allergies Allergy/AdvReac Type Severity Reaction Status Date / Time No Known Allergies Allergy Verified 06/01/18 01:33 Home Medications: Ambulatory Orders Cyclobenzaprine HCl [Flexeril 10 mg] 10 mg PO HS PRN #10 tablet 12/10/18 Methylprednisolone [Medrol Dose Damien] 4 mg PO ASDIR #21 tablet 12/10/18 Anemia: No Asthma: No Cancer: No Cardiac Disorders: No CVA: No COPD: No CHF: No Dementia: No Diabetes: No GI Disorders: Yes Disorders: No HTN: No Hypercholesterolemia: No Liver Disease: No Seizures: No Thyroid Disease: No - Surgical History Abdominal Surgery: No Appendectomy: No Cardiac Surgery: No Cholecystectomy: No GI Surgery: Yes (gastric sleeve 05/2018) Lung Surgery: No Neurologic Surgery: No Orthopedic Surgery: No - Reproductive History (#): 2 Para: 1 Therapeutic (s) & number: Yes (4 months ago) - Suicide/Smoking/Psychosocial Hx Smoking Status: Yes Smoking History: Never smoked Have you smoked in the past 12 months: No Number of Cigarettes Smoked Daily: 0 Information on smoking cessation initiated: No Hx Alcohol Use: No Drug/Substance Use Hx: No Substance Use Type: None Hx Substance Use Treatment: No Review of Systems - Review of Systems Constitutional: No: Fever Musculoskeletal: Yes: Back Pain *Physical Exam - Vital Signs Last Vital Signs Temp Pulse Resp BP Pulse Ox 98.0 F 79 16 159/113 H 100 12/10/18 20:00 12/10/18 20:00 12/10/18 20:00 12/10/18 20:00 12/10/18 20:00 - Physical Exam Comments: 12/10/18 21:15 Lumbar spine skin color and temperature are normal range of motion is limited secondary to pain. There is no midline tenderness. Mild right and left paralumbar musculature spasm without tenderness. 5 out of 5 strength in bilateral lower extremities without gross sensorimotor deficits positive straight leg raise test on the right negative on the left thighs and calves are soft and nontender. She is neurovascularly intact. Moderate Sedation - Procedure Monitoring Vital Signs: Procedure Monitoring Vital Signs Temperature 98.0 F 12/10/18 20:00 Pulse Rate 79 12/10/18 20:00 Respiratory Rate 16 12/10/18 20:00 Blood Pressure 159/113 H 12/10/18 20:00 O2 Sat by Pulse Oximetry (%) 100 12/10/18 20:00 ED Treatment Course - ADDITIONAL ORDERS Additional order review: Laboratory Results 12/10/18 20:40 Urine Color Yellow Urine Appearance Clear Urine pH 5.0 Ur Specific Marshall 1.029 Urine Protein Negative Urine Glucose (UA) Negative Urine Ketones 1+ H Urine Blood Negative Urine Nitrite Negative Urine Bilirubin Negative Urine Urobilinogen Negative Ur Leukocyte Esterase Trace Urine WBC (Auto) 3 Urine RBC (Auto) 2 Ur Epithelial Cells Rare Urine Mucus Rare Urine HCG, Qual Negative *DC/Admit/Observation/Transfer Diagnosis at time of Disposition: Back pain, Lumbar radiculopathy - Discharge Dispostion Disposition: HOME Condition at time of disposition: Stable Decision to Admit order: No - Prescriptions Prescriptions: Cyclobenzaprine HCl [Flexeril 10 mg] 10 mg PO HS PRN #10 tablet PRN Reason: Muscle Spasms Methylprednisolone [Medrol Dose Damien] 4 mg PO ASDIR #21 tablet - Referrals Referrals: Richard Briceno [Primary Care Provider] - William Boyle MD [Staff Physician] - - Patient Instructions Printed Discharge Instructions: DI for Lumbar Radiculopathy, Lumbar Radiculopathy Additional Instructions: Please take the steroid pack as directed. Do not take any Advil Motrin Aleve or ibuprofen while you are on the steroid pack. The muscle relaxer will make you sleepy 20 tablet before bedtime. If you need additional pain medication you can take Tylenol as directed. Follow-up with spine surgery in 2-3 days for further evaluation and treatment options. Return to the emergency room should symptoms worsen or go unresolved. - Post Discharge Activity
== END 2018-12-10 21:28 | disposition home or self-care (01) ==
LOC: JERFT 19:56
PROC: 3E0233Z Introduction of Anti-inflammatory into Muscle, Percutaneous Approach (ICD-10-PCS; principal; 2018-12-10)
DX: M54.16 Radiculopathy, lumbar region (principal)
CPT/HCPCS: 81003; 81015; 84703; 87086; 99281-25